=== PATIENT | male | born 1955 | race Caucasian/White ===

== ENCOUNTER 2016-10-09 11:34 | Emergency (ER) | payer OTHER ==
[~2016-10-09] VITALS: Ht 172.7 cm; Wt 92.6 kg
[~2016-10-09 11:34] MED LIST: ASPIR 8181 M1 PO; BACTRIM,SEPT1 TABLET PO; CRESTOR20 MG PO; JANTOVEN5 MG PO; LUNESTA3 MG PO; MUCINEX DM ER1 EACH PO; ROBITUSSIN DM118 ML PO; TOPROL XL25 MG PO; WARFARIN SODIU7.5 MG PO
[2016-10-09 13:02] LABS: HEMATOCRIT 41.9 % (38.0-50.0); MCH 28.8 PG (29.0-34.0); MCHC 32.9 G/DL (30.0-36.0); MCV 87.5 FL (86-99); MEAN PLAT.VOLUME 10.2 uM^3 (9.0-12.4); PLATELET COUNT 221 K/uL (156-360); RBC DIS.WIDTH-CV 14.5 % (11.8-14.6); RBC DIS.WIDTH-SD 46.8 % (39-53); RED BLOOD COUNT 4.79 M/uL (4.00-5.50); WHITE BLOOD COUNT 6.8 K/uL (4.1-10.2)
[2016-10-09 13:11] LABS: INTER. NORMALIZED RATIO 4.1; PROTHROMBIN TIME 47.9 SEC (10.2-12.9)
[2016-10-09 14:39] VITALS: BP 143/90
== END 2016-10-09 14:47 | disposition home or self-care (01) ==
LOC: EME 11:34
PROVIDERS: Emergency Medicine
DX: R04.0 Epistaxis (principal); T45.515A Adverse effect of anticoagulants, initial encounter; E78.5 Hyperlipidemia, unspecified; I10 Essential (primary) hypertension; Z95.2 Presence of prosthetic heart valve; Z79.01 Long term (current) use of anticoagulants
CPT/HCPCS: 85027; 85610; 99281; 99284

== ENCOUNTER → 2016-12-21 | Outpatient (CLI) | payer OTHER ==
[~2016-12-21] MED LIST changes: +ABC PLUS TABLE1 EACH PO; +PRINIVIL10 MG PO; +VITAMIN D31000 UNIT PO; +[UNRECOGNIZED DRUG - OTHER] PO
== END | disposition home or self-care (01) ==
LOC: PICC 10:30
DX: I38 Endocarditis, valve unspecified (principal); R78.81 Bacteremia; B95.2 Enterococcus as the cause of diseases classified elsewhere
CPT/HCPCS: 76937